=== PATIENT | male | born 1965 | race Caucasian/White ===

== ENCOUNTER 2021-08-08 05:50 | Observation (INO) ==
--- NOTE | 2021-06-12 11:39 | PAT Medication Instructions ---
Medication Instructions Date of Service June 12, 2021 Home Medications Medication Instructions Recorded cholecalciferol (vitamin D3) 50 50 mcg PO DAILY #30 tab 05/09/20 mcg (2,000 unit) tablet CPAP Machine 1 ea .ROUTE UD #1 ea 08/03/20 Oxygen Home See Rx Instructions .ROUTE 08/03/20 .COMPLEX #1 ea albuterol sulfate 2.5 mg INHALATION Q4H PRN #90 ml 03/09/21 fluticasone 250 mcg-salmeterol 50 1 inh INHALATION BID #60 ea 04/11/21 mcg/dose blistr powdr for inhalation (Wixela Inhub) fluticasone propionate 50 2 spray INTRANASAL DAILY #16 g 04/11/21 mcg/actuation nasal spray,suspension metformin 500 mg tablet,extended See Rx Instructions .ROUTE 04/11/21 release 24 hr .COMPLEX #180 tab albuterol sulfate 90 mcg/actuation 2 puff INHALATION Q6H PRN #25.5 g 05/14/21 aerosol inhaler sodium chloride 0.65 % nasal spray aerosol (Saline Nasal) 1 spray INTRANASAL BID PRN cholecalciferol (vitamin D3) 50 mcg (2,000 unit) tablet 50 mcg PO DAILY albuterol sulfate 2.5 mg INHALATION Q4H PRN fluticasone 250 mcg-salmeterol 50 mcg/dose blistr powdr for inhalation (Wixela Inhub) 1 inh INHALATION BID fluticasone propionate 50 mcg/actuation nasal spray,suspension 2 spray INTRANASAL DAILY metformin 500 mg tablet,extended release 24 hr See Rx Instructions .ROUTE .COMPLEX albuterol sulfate 90 mcg/actuation aerosol inhaler 2 puff INHALATION Q6H PRN amlodipine 5 mg tablet 5 mg PO QAM azithromycin 250 mg tablet See Rx Instructions PO .COMPLEX guaifenesin 600 mg tablet, extended release 12 hr 600 mg PO BID prednisone 20 mg tablet 20 mg PO DAILY umeclidinium 62.5 mcg/actuation blister powder for inhalation (Incruse Ellipta) 1 inh INHALATION QAM empagliflozin 25 mg tablet (Jardiance) 25 mg PO QAM fenofibrate 160 mg tablet 160 mg PO QAM levothyroxine 200 mcg tablet 200 mcg PO QAM losartan 100 mg-hydrochlorothiazide 25 mg tablet 1 tab PO QAM rosuvastatin 40 mg tablet (Crestor) 40 mg PO QAM tiotropium bromide 18 mcg capsule with inhalation device (Spiriva with HandiHaler) 1 cap INHALATION QAM Continue as directed azithromycin 250 mg tablet See Rx Instructions PO .COMPLEX STOP taking 48 hours before surgery fenofibrate 160 mg tablet 160 mg PO QAM DO NOT take the morning of surgery cholecalciferol (vitamin D3) 50 mcg (2,000 unit) tablet 50 mcg PO DAILY metformin 500 mg tablet,extended release 24 hr See Rx Instructions .ROUTE .COMPLEX guaifenesin 600 mg tablet, extended release 12 hr 600 mg PO BID empagliflozin 25 mg tablet (Jardiance) 25 mg PO QAM losartan 100 mg-hydrochlorothiazide 25 mg tablet 1 tab PO QAM Take morning of surgery With a small sip of water, OTHERWISE NOTHING TO EAT OR DRINK AFTER MIDNIGHT: sodium chloride 0.65 % nasal spray aerosol (Saline Nasal) 1 spray INTRANASAL BID PRN (if needed) albuterol sulfate 2.5 mg INHALATION Q4H PRN (if needed) fluticasone 250 mcg-salmeterol 50 mcg/dose blistr powdr for inhalation (Wixela Inhub) 1 inh INHALATION BID fluticasone propionate 50 mcg/actuation nasal spray,suspension 2 spray IN TRANASAL DAILY albuterol sulfate 90 mcg/actuation aerosol inhaler 2 puff INHALATION Q6H PRN (if needed) amlodipine 5 mg tablet 5 mg PO QAM prednisone 20 mg tablet 20 mg PO DAILY umeclidinium 62.5 mcg/actuation blister powder for inhalation (Incruse Ellipta) 1 inh INHALATION QAM levothyroxine 200 mcg tablet 200 mcg PO QAM rosuvastatin 40 mg tablet (Crestor) 40 mg PO QAM tiotropium bromide 18 mcg capsule with inhalation device (Spiriva with HandiHaler) 1 cap INHALATION QAM Use rescue inhaler if needed; please bring rescue inhaler with you to hospital day of surgery if possible. Take evening before surgery sodium chloride 0.65 % nasal spray aerosol (Saline Nasal) 1 spray INTRANASAL BID PRN (if needed) albuterol sulfate 2.5 mg INHALATION Q4H PRN (if needed) fluticasone 250 mcg-salmeterol 50 mcg/dose blistr powdr for inhalation (Wixela Inhub) 1 inh INHALATION BID metformin 500 mg tablet,extended release 24 hr See Rx Instructions .ROUTE .COMPLEX albuterol sulfate 90 mcg/actuation aerosol inhaler 2 puff INHALATION Q6H PRN (if needed) guaifenesin 600 mg tablet, extended release 12 hr 600 mg PO BID Other Notes If you have any questions please call us at [phone] or [phone] or [phone] or [phone]
--- NOTE | 2021-07-17 14:08 | Anesthesiology Consultation ---
Date of Service July 17, 2021 Assessment & Plan (1) Encounter for pre-operative examination: - check BSG am DOS. - Case reviewed with Dr. Bernstein who advised given respiratory status and pulm recommendations as below patient will need pulmonology re-evaluation prior to surgery that he is acceptable to undergo procedure and for any pulmonary brendan- operative recommendations. Awaiting pulmonology pre-op evaluation. - pulmonology office visit 06/26/21 [place]: "...telehealth follow-up visit for acute exacerbation of COPD...states that he is doing much better clinically...down to about 1/2 pack/day with regards to his tobacco abuse...completed the prednisone course that I gave him at our last visit and has been using azithromycin 3 times a week...using the Breo and Anoro...scheduled to undergo kidney surgery later this month...severe obstructive lung disease and ongoing tobacco exposure as well as some component of restrictive lung disease...status post an acute exacerbation...continue Breo and Incruse. Continue azithromycin 250 mg 3 times a week..." - PCP office visit 06/13/21 [place]: "...hospitalized June 07, 2021 to June 09, 2021...COPD exacerbation...continues to have some shortness of breath and dyspnea on exertion...currently on 2 L of nasal cannula...recommended to move this back by two weeks to allow recovery..." - COVID screening: Per assessment on 07/17/2021: Travel screen negative, no known COVID-19 positive contacts or current COVID-19 related symptoms in past 2 weeks. Patient vaccinated. Surgeon arranging preop COVID testing, scheduled 07/31/2021. Awaiting results. Chart Review Chart Review: Pending: Refer to Additional Notes / Consult section and Patient seen in Pre Admission Testing Teaching & Discussion Pre-Anesthesia Teaching/Discussion Notes: Instructed NPO after midnight before surgery, except medications with 15 cc of water. Medication instructions provid ed according to the PAT guidelines. History Surgery Operation Date: 08/02/21 07:30 Proposed Procedures p Robotic Laparoscopic Assisted Partial Nephrectomy Left - Flex Carrasco MD Height/Weight Height: 5 ft 7 in Weight: 115 kg Allergies Allergy/AdvReac Type Severity Reaction Status Date / Time lisinopril AdvReac Mild Cough Verified 06/13/21 10:42 Medications Home Medications Medication Instructions Recorded Confirmed Last Taken sodium chloride 0.65 % nasal spray 1 spray INTRANASAL BID PRN 05/01/20 06/13/21 Unknown aerosol (Saline Nasal) cholecalciferol (vitamin D3) 50 50 mcg PO DAILY #30 tab 05/09/20 06/13/21 Unknown mcg (2,000 unit) tablet CPAP Machine 1 ea .ROUTE UD #1 ea 08/03/20 06/13/21 Unknown Oxygen Home See Rx Instructions .ROUTE 08/03/20 06/13/21 Unknown .COMPLEX #1 ea albuterol sulfate 2.5 mg INHALATION Q4H PRN #90 ml 03/09/21 06/13/21 Unknown fluticasone propionate 50 2 spray INTRANASAL DAILY #16 g 04/11/21 06/13/21 Unknown mcg/actuation nasal spray,suspension metformin 500 mg tablet,extended See Rx Instructions .ROUTE 04/11/21 06/13/21 Unknown release 24 hr .COMPLEX #180 tab albuterol sulfate 90 mcg/actuation 2 puff INHALATION Q6H PRN #25.5 g 05/14/21 06/13/21 Unknown aerosol inhaler azithromycin 250 mg tablet 250 mg PO .COMPLEX #36 tab 06/12/21 06/13/21 Unknown empagliflozin 25 mg tablet 25 mg PO QAM 06/12/21 06/13/21 Unknown (Jardiance) fenofibrate 160 mg tablet 160 mg PO QAM 06/12/21 06/13/21 Unknown levothyroxine 200 mcg tablet 200 mcg PO QAM 06/12/21 06/13/21 Unknown losartan 100 1 tab PO QAM 06/12/21 06/13/21 Unknown mg-hydrochlorothiazide 25 mg tablet prednisone 20 mg tablet 40 mg PO DAILY #7 tab 06/12/21 06/13/21 Unknown rosuvastatin 40 mg tablet (Crestor) 40 mg PO QAM 06/12/21 06/13/21 Unknown guaifenesin 600 mg tablet, 600 mg PO BID PRN 06/13/21 06/13/21 Unknown extended release 12 hr fluticasone fur. 100 mcg-umeclid 1 inh INHALATION DAILY #60 ea 06/28/21 Unknown 62.5 mcg-vilant 25 mcg inhalat.powder (Trelegy Ellipta) amlodipine 10 mg tablet See Rx Instructions .ROUTE 07/03/21 Unknown .COMPLEX #90 tablet Past Medical History Medical History (Updated 07/17/21 @ 15:58 by Adelita Vigil PA-C) Anxiety in clinical settings, reports at times tx with benzo inpatient in past Bladder cancer DX 2006 Chronic obstructive pulmonary disease exacerbation admission for respiratory failure 06/07-06/09/21, reports onset of cough yesterday without change in shortness of breath or wheezing Diabetes mellitus, type 2 History of COVID-19 04/17/21>SOB/CONGESTION/FATIGUE, supplemental oxygen use at night Hyperlipidemia Hypertension controlled, stable per pt Hypothyroidism On home oxygen therapy 2L HS with CPAP, with activity several wks after COVID illness 04/17/21; pt states has since discontinued Renal carcinoma Sleep apnea CPAP Tobacco use disorder Pt requests nicotine patch during admission, aware to discuss with surgeon's office/hospitalist team Patient denies h/o stroke, seizures, heart attack, heart failure, blood clots or blood transfusions. Exercise / Class Metabolic Activity II 4-5 Yardwork/Stairs/Walk up hill (SOB with 1 FOS if carrying something heavy, denies CP) Past Family History Family History Mother History of blood clots from blood clot that went to the brain Asthma Father Esophageal cancer Anxiety Grandfather (Paternal) No problems noted. Grandmother (Paternal) Hypertension Stroke Uncle Lung cancer paternal Other No family history of adverse response to anesthesia Denies family history of Ovarian cancer Prostate cancer Heart disease Myocardial infarction Breast cancer Colorectal cancer Past Surgical History Surgical History Fusion of spine LUMBAR FUSION History of anesthesia reaction COMBATIVE WITH BACK SURGERY History of bladder surgery TURBT X 2 History of cystoscopy History of hernia repair X 3 History of tooth extraction Past Anesthesia History No Family Hx of Anesthesia Complications and Other (combative post-op) History of PONV No Hx of PONV and No Hx of Motion Sickness Social History Smoking Status: Current every day smoker tobacco type: cigarettes Smoking cigarettes per day: 10-15 PER DAY "TRYING TO CUT DOWN" *ADVISED Do You Dip or Chew Tobacco: No Hx Alcohol Use: No Hx Substance Use: No substance use type: does not use Review of Systems Rare reflux. Onset of cough yesterday, denies increased shortness of breath or dyspnea on exertion, pharyngitis, sinus/ear pain or fatigue. Pt was advised to remain in close communication with pulmonology office. Patient denies chest pain, fever, chills, or palpitations. Physical Exam Vital Signs Vitals BP 115/76 P 91 TEMP 98.6 SP02 96% on RA RESP 17 Physical Full cervical extension range of motion without pain TMD 3.5 finger breaths Mallampati Score 3 Dentition: intact, several missing back upper and lower, cap upper front right; denies chipped or loose teeth, implants or bridges Lungs: normal respiratory effort. Good air movement, diffuse expiratory wheezes, no rales or rhonchi Cardiac: regular rate and rhythm, no murmurs noted Carotid arteries: negative bruit bilat Lab Results Anesthesia Preop Results Results Anesthesia Widget: WBC 4.94 K/uL (4.8-10.8) 07/17/21 Hgb 15.6 g/dL (14.0-18.0) 07/17/21 Hct 47.8 % (42-52) 07/17/21 Plt 270 K/uL (130-400) 07/17/21 Na 138 mmol/L (136-145) 07/17/21 K 3.8 mmol/L (3.5-5.1) 07/17/21 Cl 104 mmol/L (98-107) 07/17/21 CO2 27 mmol/L (21-32) 07/17/21 BUN 24 mg/dl (6-23) H 07/17/21 Creat 1.01 mg/dl (0.6-1.4) 07/17/21 Glucose Level 120 mg/dl (70-99(Fasting)) H 07/17/21 Urine Color Yellow 07/17/21 Urine Appearance Clear (Clear) 07/17/21 Urine pH 5.5 (4.5-7.5) 07/17/21 Urine Specific [place] 1.024 (1.000-1.030) 07/17/21 Urine Protein 1+ (Negative) H 07/17/21 Urine Glucose (UA) 3+ (Negative) H 07/17/21 Urine Ketones Negative (Negative) 07/17/21 Urine Blood Negative (Negative) 07/17/21 Urine Nitrite Negative (Negative) 07/17/21 Urine Bilirubin Negative (Negative) 07/17/21 Urine Urobilinogen Negative (Negative) 07/17/21 Urine Leukocyte Esterase Negative (Negative) 07/17/21 Urine WBC (Auto) 0 /hpf (0-5) 07/17/21 Urine RBC (Auto) 0-4 /hpf (0-4) 07/17/21 Urine Hyaline Casts (Auto) 0 /lpf (0-5) 07/17/21 Urine Epithelial Cells (Auto) 0-5 /lpf (0-5) 07/17/21 Urine Bacteria (Auto) Negative (Negative) 07/17/21 Blood Type A Positive 07/17/21 Antibody Screen NEGATIVE 07/17/21 Testing Laboratory Results 06/08/21 A1c: 7.4% Electrocardiogram Date: 07/17/21 NSR, rate 85 bpm Chest X-Ray Date: 07/17/21 Lung volumes are normal. There is no pneumothorax or pleural effusion. Cardiac size is normal. Mediastinal contours are normal. Nipple shadows project over the lungs. There is mild interstitial thickening, similar to prior exam. IMPRESSION: No significant change in mild nonspecific interstitial thickening since chest radiograph of June 07, 2021. Other Testing CT abdomen/pelvis 05/10/21 Approximately 3 cm mass arising off of the upper pole of the left kidney concerning for renal cell carcinoma 2.5 cm fatty left adrenal mass compatible with a myelolipoma, slightly larger than on previous exam Chest CT 10/25/20 Interval resolution of previously seen right lower lobe ground-glass density Redemonstration of left renal upper pole exophytic lesion
[2021-08-08] MEDS ORDERED: LR 15ML/HR IV SCH (06:00)
[2021-08-08] MEDS ORDERED: ceFAZolin 2000MG 2,000 MG/15 ML SYR IV SCH (06:00)
[2021-08-08] MEDS ORDERED: LIDOCAINE 2% 2 ML VIAL/AMP(20MG/ML) INFIL ONE (06:44)
[2021-08-08] MEDS ORDERED: DEXAMETHASONE SOD INJ 4 MG/ML VIAL ONE (06:44)
[2021-08-08] MEDS ORDERED: fentaNYL citrate 100 MCG/2 ML VIAL ONE ×2 (06:44→11:56)
[2021-08-08] MEDS ORDERED: PROPOFOL IV EMULSION 10 MG/ML 20 ML VIAL IV ONE ×2 (06:44→06:46)
[2021-08-08] MEDS ORDERED: ONDANSETRON INJ 2 MG/ML 2 ML VIAL ONE (06:44)
[2021-08-08] MEDS ORDERED: MIDAZOLAM HCL 1 MG/ML 2ML VIAL ONE (06:44)
[2021-08-08] MEDS ORDERED: ROCURONIUM BROMIDE 10 MG/ML 5 ML VIAL IV ONE ×12 (06:44→11:42)
[2021-08-08] MEDS ORDERED: fentaNYL citrate 100 MCG/2 ML VIAL IV PRN ×2 (06:55→15:20)
[2021-08-08] MEDS ORDERED: diphenhydrAMINE 50 MG/ML VIAL IV PRN (06:55)
[2021-08-08] MEDS ORDERED: HYDROmorphone INJ 1 MG/ML SYRINGE IV PRN (06:55)
[2021-08-08] MEDS ORDERED: ePHEDrine sulfate 50 MG/ML AMP IV PRN ×2 (06:55→15:20)
[2021-08-08] MEDS ORDERED: ATROPINE SULFATE 0.1 MG/ML 10ML SYR IV PRN ×2 (06:55→15:20)
[2021-08-08] MEDS ORDERED: ONDANSETRON INJ 2 MG/ML 2 ML VIAL IV PRN ×3 (06:55→18:13)
[2021-08-08] MEDS ORDERED: DEXAMETHASONE SOD INJ 4 MG/ML VIAL IV PRN (06:55)
--- NOTE | 2021-08-08 06:59 | History & Physical Report ---
Date of Service August 08, 2021 Assessment & Plan (1) Left renal mass: Plan: We reviewed his renal mass and that it likely represents malignancy. We reviewed the plan for robot-assisted partial nephrectomy today. We reviewed the risks and benefits as well as what he should expect postoperatively. He expressed understanding and willingness to proceed with surgery. Plan: Proceed with robot-assisted laparoscopic partial left nephrectomy. History of Present Illness Primary Care Provider: Arik Raya MD This is a 56-year-old male who was previously seen in the urology office on 05/28/2021 for a newly discovered left-sided renal mass. Images were obtained for review which confirmed a 3 cm anterior upper pole heterogeneously enhancing left renal mass, concerning for malignancy. At that visit we had discussed surgical removal with robot-assisted laparoscopic left partial nephrectomy. We discussed the risks and benefits of the procedures and he elected to proceed with surgery. He presents to the OR today for this procedure. Of note, since his office visit, he was hospitalized with a COPD exacerbation and COVID-19. He has followed by pulmonology and is thought to be optimized for surgery from a pulmonary perspective. Allergies Allergy/AdvReac Type Severity Reaction Status Date / Time lisinopril AdvReac Mild Cough Verified 08/08/21 06:12 Home Medications Medication Instructions Recorded Confirmed Type sodium chloride 0.65 % nasal spray 1 spray INTRANASAL BID PRN 05/01/20 08/08/21 History aerosol (Saline Nasal) cholecalciferol (vitamin D3) 50 50 mcg PO DAILY #30 tab 05/09/20 08/08/21 Rx mcg (2,000 unit) tablet CPAP Machine 1 ea .ROUTE UD #1 ea 08/03/20 08/08/21 Rx Oxygen Home See Rx Instructions .ROUTE 08/03/20 08/08/21 Rx .COMPLEX #1 ea albuterol sulfate 2.5 mg INHALATION Q4H PRN #90 ml 03/09/21 08/08/21 Rx fluticasone propionate 50 2 spray INTRANASAL DAILY #16 g 04/11/21 08/08/21 Rx mcg/actuation nasal spray,suspension metformin 500 mg tablet,extended See Rx Instructions .ROUTE 04/11/21 08/08/21 Rx release 24 hr .COMPLEX #180 tab albuterol sulfate 90 mcg/actuation 2 puff INHALATION Q6H PRN #25.5 g 05/14/21 08/08/21 Rx aerosol inhaler empagliflozin 25 mg tablet 25 mg PO QAM 06/12/21 08/08/21 History (Jardiance) fenofibrate 160 mg tablet 160 mg PO QAM 06/12/21 08/08/21 History levothyroxine 200 mcg tablet 200 mcg PO QAM 06/12/21 08/08/21 History losartan 100 1 tab PO QAM 06/12/21 08/08/21 History mg-hydrochlorothiazide 25 mg tablet rosuvastatin 40 mg tablet (Crestor) 40 mg PO QAM 06/12/21 08/08/21 History amlodipine 10 mg tablet See Rx Instructions .ROUTE 07/03/21 08/08/21 Rx .COMPLEX #90 tablet theophylline 400 mg 400 mg PO DAILY tab 07/25/21 08/08/21 History tablet,extended release 24 hr fluticasone furoate 100 1 inh INHALATION DAILY #60 ea 08/01/21 08/08/21 Rx mcg-vilanterol 25 mcg/dose inhalation powder (Breo Ellipta) umeclidinium 62.5 mcg/actuation 1 inh INHALATION DAILY #30 ea 08/01/21 08/08/21 Rx blister powder for inhalation (Incruse Ellipta) Past Med/Surg History Medical History Anxiety Bladder cancer Chronic obstructive pulmonary disease Diabetes mellitus, type 2 History of COVID-19 Hyperlipidemia Hypertension Hypothyroidism On home oxygen therapy Renal carcinoma Sleep apnea Tobacco use disorder Surgical History Fusion of spine History of anesthesia reaction History of bladder surgery History of cystoscopy History of hernia repair History of tooth extraction Family History Mother History of blood clots Asthma Father Esophageal cancer Anxiety Grandfather (Paternal) No problems noted. Grandmother (Paternal) Hypertension Stroke Uncle Lung cancer Other No family history of adverse response to anesthesia Denies family history of Ovarian cancer Prostate cancer Heart disease Myocardial infarction Breast cancer Colorectal cancer Social History Smoking Status: Current every day smoker Tobacco Type: Cigarettes Age Started Using Tobacco: 14; packs per day: 1; Cigarettes Per Day: 10-15 PER DAY "TRYING TO CUT DOWN" *ADVISED; Second Hand Exposure: Yes; Do You Dip or Chew Tobacco: No; Hx Alcohol Use: No Hx Substance Use: No Preferred Language: Albanian Communication Ability: Effective Hearing Ability: Normal Legal Examiner Required: No Beliefs That Will Affect Care: None marital status: Current Living Situation: Spouse current occupational status: employed current occupation: industrial automation engineer How many Children do You have: 1 Feels Safe at Home: Yes Safety Concerns: Feels Safe At This Time Childhood Exposure to Second-Hand Smoke: Yes Seatbelt Use: always Sunscreen Use: Yes Assistive Devices: CPAP, Glasses, Nebulizer and Oxygen - Continuous Review of Systems 14 point review of systems negative except for otherwise indicated. Physical Exam Constitutional: well developed and well nourished; no acute distress Eyes: + anicteric sclerae; pupils not irregular Respiratory: normal respiratory effort; no respiratory distress, does not use accessory muscles and no cough Cardiovascular: well perfused Gastrointestinal (Abdomen): Inspection/Auscultation: abdomen normal to inspection; abdomen not distended Musculoskeletal: Extremities: extremities normal to inspection Skin: normal turgor; no rashes and no lesions Neurologic: moves all extremities and awake Psychiatric: Orientation: alert and oriented x 3 Results & Data ([facility]) Vital Signs (Past 12 Hours) Vital Signs Temp Pulse Resp BP Pulse Ox 08/08/21 06:17 36.9 C 94 H 20 138/85 92
[2021-08-08] MEDS ORDERED: GELATIN SPONGE SZ 100 ONE (07:29)
[2021-08-08] MEDS ORDERED: BUPIVACAINE 0.5 % 5 MG/1 ML MPF 30ML VIAL ONE (07:29)
[2021-08-08] MEDS ORDERED: SURGICEL ABSORB HEMOSTAT 2IN X 14IN TOP ONE (09:36)
[2021-08-08] MEDS ORDERED: TISSEEL FIBRIN SEALANT 10ML TOP ONE (09:37)
[2021-08-08] MEDS ORDERED: FLOSEAL HEMOSTATIC MATRIX 10ML TOP ONE (09:59)
[2021-08-08] MEDS ORDERED: INSULIN ASPART PER UNIT ONE ×2 (11:01→12:51)
[2021-08-08] MEDS ORDERED: ceFAZolin 330 MG/ML 1 GM VIAL ONE (11:27)
[2021-08-08] MEDS ORDERED: ceFAZolin 2000MG 2,000 MG/15 ML SYR IV ONE (11:30)
--- NOTE | 2021-08-08 14:01 | Post Operative Brief Note ---
PG Immediate Post Op with CF Date of Surgery August 08, 2021 Pre & Post Diagnosis Operation Date: 08/08/21 07:30 Pre-Op Diagnosis: Renal Cell Carcinoma of Left Kidney Post-Op Diagnosis: Renal Cell Carcinoma of Left Kidney I identified the patient and participated in the time-out.: Yes Procedure Operation Date: 08/08/21 07:30 Actual Procedures p Robotic Assisted Laparoscopic Left Radical Nephrectomy (Left) - Flex Carrasco MD Surgeon Flex Carrasco MD Power Plant Operator José Antonio Palacios MD Estimated Blood Loss 20 Findings Consistent with Post-Op Diagnosis Specimens Specimen Description: A. Left kidney Drains Manriquez Catheter Anesthesia Type General Complications none Disposition Disposition: Recovery Room
[2021-08-08] MEDS: fentaNYL citrate 100 MCG/2 ML VIAL IV PRN ×2 (14:32→14:50)
[2021-08-08] MEDS ORDERED: PHENYLEPHRINE 100MCG/ML 5ML SYR IV PRN (15:20)
[2021-08-08] MEDS ORDERED: LABETALOL HCL IV 5 MG/ML 20ML IV PRN (15:20)
--- NOTE | 2021-08-08 15:34 | Operative Report ---
PG Post Operative Report Pre & Post Diagnosis Operation Date: 08/08/21 07:30 Pre-Op Diagnosis: Renal Cell Carcinoma of Left Kidney Post-Op Diagnosis: Renal Cell Carcinoma of Left Kidney I identified the patient and participated in the time-out.: Yes Procedure Operation Date: 08/08/21 07:30 Actual Procedures p Robotic Assisted Laparoscopic Left Radical Nephrectomy (Left) - Flex Carrasco MD Surgeon Flex Carrasco MD Claim Approver José Antonio Palacios MD Estimated Blood Loss 20 Findings Consistent with Post-Op Diagnosis Specimens Left kidney Drains 16 Micronesian Manriquez catheter per urethra Anesthesia Type General Complications none Disposition Disposition: Recovery Room Indications This is a 56-year-old male who was recently seen in the urology office with a left renal mass. At that visit we discussed the likelihood that the mass represented a malignancy and it should be removed. We discussed robot-assisted partial left nephrectomy with the risk of converting to a radical nephrectomy. He expressed understanding and presented to the OR today for surgery. Description of Procedure The patient was identified and informed consent was confirmed. He was marked on the left side and then brought to the OR where general anesthesia was initiated. He was placed on the operating room table in a relaxed left lateral position with the left side elevated and the table slightly flexed. All pressure points were appropriately padded. His abdomen and flank were prepped and draped in the usual sterile fashion and a timeout was performed. Upon inspection he was noted to have an umbilical hernia and a scar from prior inguinal surgery. A line was marked approximately 8 cm to the left of the umbilicus, running cephalocaudally. Anticipated port sites were marked 2 cm below the costal margin, and then approximately 7.5 cm spaced apart along this line. An incision was made at the second marcelo, and the subcutaneous tissue was bluntly spread to reach the fascia. A Veress needle was then used to gain access to the peritoneum, confirming position with a negative aspiration, successful drop test and low opening pressure. The abdomen was then insufflated to 15 mmHg. An 8 mm robotic port was then advanced into the peritoneum and the camera was inserted. Survey demonstrated some adhesions of the colon to the lateral wall, especially down toward the pelvis. The umbilical hernia appeared to be fat- containing and was clear of the field. The remaining 8 mm robotic ports were placed under direct vision. A 12 mm physical therapist assistant port was placed just cephalad to the umbilicus. The robot was then docked. I began by sharply lysing the adhesions of the colon to the lateral wall, then reflecting the colon along the white line of Toldt. In this fashion I was able to expose the contour of the kidney. There were some sticky areas at approximately the level of the lower pole. Off the lower pole I was able to identify the psoas muscle, then using this landmark, the gonadal vessels and the ureter could be identified. Lifting the kidney anteriorly, I then dissected along the gonadal vein toward the hilum. This dissection was particularly challenging due to the significant amount of abdominal fat, which made retraction and exposure difficult. Up toward the hilum, it was clear that the gonadal vessels were tethering the tissue down and limiting the ability to dissect. The gonadal vein and artery were and then clipped with Hem-o-loks, then cauterized and divided. Gaining further exposure of this area was challenging, again due to the abdominal fat. A 5 mm port was placed lateral to the umbilicus. I had the physical therapist assistant use a laparoscopic fan/paddle device to retract bowel via the 12 mm port, and use the laparoscopic suction through the 5 mm port. I was next able to identify the hilum and dissect out the vessels. He had 2 main renal veins which appeared to essentially wind around the main renal artery. There appeared to be a smaller accessory artery and vein associated with this as well. I was able to carry dissection slightly further up toward the head, identifying large splenic vessels off the superior aspect of the kidney. We then introduced the intraoperative ultrasound. The upper pole of the kidney was surveyed and the mass was identified. It appeared to be in a more posterior position than it had seemed on the CT scan. Gaining access to this portion of the kidney was very challenging due to the bowels and fat. Based on the location and complex hilar anatomy, I decided the safer approach would be to convert to a radical nephrectomy rather than attempt a partial at this point. A window was made on either side of the main renal artery, which ended up including the accessory branches and one of the renal veins. The laparoscopic stapler with a vascular staple load was inserted and aligned with this window. 1 staple load was used to take the artery and other vessels listed above. The single vein was left in place while I checked to make sure there were no other arteries more cephalad. Satisfied that there were not, a second staple load was used to divide the remaining vein. There was good hemostasis. The remaining attachments of the kidney were then freed up. The cone of fat was divided largely with cautery. Clips were applied to both the ureter and the gonadal vessels, then both of these were divided. The superior aspect of the kidney was then freed up from the surrounding retroperitoneum. Due to retraction, a rent was made in the renal parenchyma, however this appeared to be well removed from the renal mass. The mass appeared to be intact. Once the kidney was freed up, the fourth arm of the robot was [id number] and that port was upsized to a 15 mm trocar. The 15 mm Endo Catch bag was then inserted and used to bag the specimen. The renal fossa was inspected to confirm good hemostasis. Surgicel and Floseal were both applied to the wound bed and the stapled hilar vessels. Hemostasis appeared to be excellent. The robot was then docked. The lowermost port site incision was extended with the blade. Dissection was then carried down with electrocautery to expose the external oblique fascia. 2 stay sutures were placed for future identification. The fascia was then divided with cautery, and further dissection was carried down. Once we were close to the peritoneum, the port was removed and then I dissected down onto my finger to protect any underlying bowel. The kidney was extracted and sent for pathologic analysis. The peritoneum was closed using a running 3-0 Vicryl suture. The external oblique fascia was then closed using interrupted [id number] 0 Vicryl sutures. The fascia was anesthetized using 10 mL of 0.5% Marcaine without epinephrine. The other incisions and skin edges were anesthetized using 20 mL of 0.5% Marcaine. The subcutaneous tissue of the extraction site was closed using a running 3-0 Vicryl suture, and the skin was closed with a running subcuticular 4-0 Monocryl. Other port sites were closed using interrupted or subcuticular 4-0 Monocryl sutures. A deep stitch was placed to the fascia of the physical therapist assistant port with a 0 Vicryl. The abdomen was then cleaned and dried and Dermabond was applied to all the incisions. At this point the patient was awakened from anesthesia and was brought to the [facility] in stable condition. José Antonio Palacios MD assisted for the procedure, acting as the bedside physical therapist assistant, providing retraction, applying clips, passing sutures and stapling as necessary. I attest to the content of the Intraoperative Record and any orders documented therein. Any exceptions are noted below.
[2021-08-08] MEDS: HYDROmorphone INJ 1 MG/ML SYRINGE IV PRN ×2 (16:07→16:42)
--- NOTE | 2021-08-08 16:09 | Anesthesiology Progress Note ---
Date of Service August 08, 2021 Anesthesia Post Procedure Vital Signs Vital Signs: Temp Pulse Pulse Resp BP Pulse Ox 08/08/21 15:50 95 H 18 110/71 92 08/08/21 15:40 101 H 16 116/75 92 08/08/21 15:30 102 H 20 107/85 92 08/08/21 15:20 99 H 20 108/70 92 08/08/21 15:10 94 H 20 108/81 92 08/08/21 15:00 104 H 14 105/72 92 08/08/21 14:50 107 H 21 105/74 92 08/08/21 14:40 112 H 17 129/86 92 08/08/21 14:30 113 H 17 126/77 93 08/08/21 14:20 113 H 16 138/86 94 08/08/21 14:14 36.6 C 105 H 12 135/77 93 08/08/21 06:17 36.9 C 94 H 20 138/85 92 Pain Intensity Right Arm: Pain Intensity: 4 Transfer of Care Handoff Completed per policy Notes Mental Status: alert / awake / arousable Patient Amnestic to Procedure: Yes Nausea / Vomiting: adequately controlled Pain: adequately controlled Airway Patency, RR, SpO2: stable & adequate BP & HR: stable & adequate Hydration State: stable & adequate Anesthetic Complications: no major complications apparent and Pt Satisfied with anesthetic care Notes: The patient was signed out to me in PACU by Dr. Addison. The patient has had some soreness over his right elbow in the PACU. Dr. Ibarra evaluated the patient with me. The patient is able to raise his right arm, squeeze with his fingers, and pinch his thumb and pinky finger on his right hand together. The patient has some soreness over his lateral right arm. Pushing on the area does not worsen the soreness. 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 Dr. Ibarra counseled the patient to take anti-inflammatory over the counter pain medicines as directed and to keep his arm relaxed without pressure on it.
[2021-08-08] MEDS ORDERED: ALBUTEROL 0.083% NEBU SOLN 3 ML VIAL INH PRN (18:13)
[2021-08-08] MEDS ORDERED: oxyCODONE HCL IR 5 MG TAB (IMMEDIATE RELEASE) PO PRN (18:13)
[2021-08-08] MEDS ORDERED: MoRPHine SULFATE 2 MG/ML CARP IV PRN (18:13)
[2021-08-08] MEDS ORDERED: NON-FORMULARY MEDICATION (Cpap Machine misc) SCH (18:13)
[2021-08-08] MEDS ORDERED: NON-FORMULARY MEDICATION (Oxygen Home Liters per Minute) SCH (18:13)
[2021-08-08] MEDS ORDERED: ACETAMINOPHEN 325 MG TAB PO PRN (18:13)
[2021-08-08] MEDS ORDERED: ALBUTEROL HFA 8 GM INHALER INH PRN (18:13)
[2021-08-08] MEDS ORDERED: PHARMACY GLYCEMIC MGMT CONSULT PRN (18:13)
[2021-08-08] MEDS: MoRPHine SULFATE 4 MG/ML 1 ML CARP\\VIAL IV PRN (19:17)
[2021-08-08] MEDS: LACTATED RINGER'S 1,000 ML IV SCH (19:21)
[2021-08-08] MEDS ORDERED: INSULIN GLARGINE SOLOSTAR 100 UNITS/ML 3 ML PEN SC STA ×2 (19:21→20:23)
[2021-08-08] MEDS: DOCUSATE SODIUM 100 MG CAP PO SCH (20:06)
[2021-08-08] MEDS: ceFAZolin 2000MG 2,000 MG/15 ML SYR IV SCH (20:07)
[2021-08-08] MEDS: oxyCODONE HCL IR 5 MG TAB (IMMEDIATE RELEASE) PO PRN (20:07)
[2021-08-08] MEDS: INSULIN ASPART PER UNIT SC SCH (20:23)
[2021-08-08] MEDS: NICOTINE 14 MG/24 HR PATCH TD SCH (20:25)
[2021-08-08] MEDS: HEPARIN SOD 5,000 UNIT/0.5 ML VIAL SQ SCH (20:33)
[2021-08-09] MEDS: INSULIN ASPART PER UNIT SC SCH ×6 (00:15→21:05)
[2021-08-09] MEDS: oxyCODONE HCL IR 5 MG TAB (IMMEDIATE RELEASE) PO PRN ×5 (02:16→21:26)
[2021-08-09] MEDS: LACTATED RINGER'S 1,000 ML IV SCH ×3 (02:19→21:33)
[2021-08-09] MEDS: ceFAZolin 2000MG 2,000 MG/15 ML SYR IV SCH ×2 (04:13→04:22)
[2021-08-09] MEDS: MoRPHine SULFATE 4 MG/ML 1 ML CARP\\VIAL IV PRN (04:32)
[2021-08-09] MEDS: LEVOTHYROXINE SODIUM 200 MCG TABLET PO SCH (06:16)
[2021-08-09 08:24] LABS: Eosinophils # (auto) 0.05 K/uL (0-0.5); Eosinophils % (auto) 0.5 %; Hematocrit (blood only) 44.2 % (42-52); Hemoglobin 14.4 g/dL (14.0-18.0); Immature Granulocytes # (auto) 0.03 K/uL (0.00-0.02); Immature Granulocytes % (auto) 0.3 %; Lymphocytes # (auto) 1.17 K/uL (1.2-3.4); Lymphocytes % (auto) 10.8 %; Mean Corpuscular Hemoglobin 29.2 pg (25-34); Mean Corpuscular Hgb Conc 32.6 g/dL (32-36); Mean Corpuscular Volume 89.7 fL (80-100); Mean Platelet Volume 10.4 fL (7.4-10.4); Monocytes # (auto) 1.36 K/uL (0.11-0.59); Monocytes % (auto) 12.5 %; Neutrophils # (auto) 8.26 K/uL (1.4-6.5); Neutrophils % (auto) 75.9 %; Platelet Count 238 K/uL (130-400); RDW Coefficient of Variation 14.6 % (11.5-14.5); RDW Standard Deviation 47.7 fL (36.4-46.3); Red Blood Count 4.93 M/uL (4.7-6.1); White Blood Count 10.87 K/uL (4.8-10.8)
[2021-08-09] MEDS: UMECLIDINIUM BROMIDE 62.5MCG/BLISTER 7 PUFFS/INHALER INH SCH (08:30)
[2021-08-09] MEDS: FLUTICASONE/VILANTEROL 100/25MCG 14 PUFFS/INHALER INH SCH (08:31)
[2021-08-09] MEDS: FLUTICASONE PROPIONATE NA SPR 16 GM BTL SCH (08:31)
[2021-08-09] MEDS: FENOFIBRATE NANOCRYSTALLIZED 145 MG TABLET PO SCH (08:32)
[2021-08-09] MEDS: NICOTINE 14 MG/24 HR PATCH TD SCH (08:32)
[2021-08-09] MEDS: amLODIPine BESYLATE 5 MG TAB PO SCH (08:32)
[2021-08-09] MEDS: ROSUVASTATIN CALCIUM 20 MG TAB PO SCH (08:32)
[2021-08-09] MEDS: CHOLECALCIFEROL 1,000 UNITS 25 MCG TAB PO SCH (08:33)
[2021-08-09] MEDS: THEOPHYLLINE 400 MG EXTENDED REL TAB PO SCH (08:33)
[2021-08-09] MEDS: DOCUSATE SODIUM 100 MG CAP PO SCH ×2 (08:33→19:45)
[2021-08-09 08:36] LABS: Calcium 8.6 mg/dl (8.5-10.1); Est GFR (African American) 40.3 ml/min; Est GFR (Non-African American) 34.8 ml/min; Potassium 3.9 mmol/L (3.5-5.1)
--- NOTE | 2021-08-09 08:38 | Urology Progress Note ---
Date of Service August 09, 2021 Assessment & Plan (1) Renal mass of unknown nature: Plan: Doing well, s/p left robot-assisted radical nephrectomy on 08/08/2021. We reviewed discharge criteria, that he needs to be eating, ambulating and his pain under control. We will see how this morning goes and potentially he will be ready for discharge this afternoon. We will also monitor his oxygen status as he has recently had COPD exacerbation and hospitalization from [place] [id number]. This may delay his discharge. He should be ready for Manriquez catheter removal today. Admission and Anticipated Discharge Date Admission Date: August 08, 2021 Subjective Feeling okay today Still having some soreness of the abdomen, needed dose of morphine early this morning. Has not had any food yet, but no nausea or vomiting. Has not ambulated yet, but ready to try this morning. Review of Systems Review of Systems: No fevers and chills Gastrointestinal: No nausea or vomiting Physical Exam Physical Exam: Well-appearing, NAD Respiratory: Breathing comfortably, no accessory muscles, supplemental oxygen by nasal cannula Gastrointestinal (Abdomen): Abdomen soft, appropriate periincisional tenderness. Incisions are well approximated with overlying Dermabond. Mild erythema around the incisions, no drainage. Genitourinary: Manriquez catheter in place draining clear yellow urine Results & Data ([facility]) Vital Signs (Past 12 Hours) Vital Signs Temp Pulse Resp BP BP Pulse Ox 08/09/21 07:21 36.5 C 85 16 136/89 93 08/09/21 06:01 36.4 C L 88 16 137/81 94 08/09/21 01:58 36.8 C 99 H 18 132/79 93 08/08/21 22:03 36.6 C 94 H 18 130/88 94 08/08/21 20:56 36.7 C 91 H 18 136/81 96 PG Care Time/CCT Total # of Minutes Spent Total Time Spent with Patient: Total time spent is greater than 50% in coordination of care (as documented) at patient's floor/unit and/or counseling patient: Coding Level of Care Code None Diagnoses Renal mass of unknown nature N28.89
[2021-08-09] MEDS: HEPARIN SOD 5,000 UNIT/0.5 ML VIAL SQ SCH ×2 (09:00→19:45)
[2021-08-09] MEDS ORDERED: LOSARTAN/HCTZ 50/12.5MG TAB PO SCH (09:00)
[2021-08-09 09:39] LABS: Estimated Average Glucose 214 mg/dl; Hemoglobin A1C 9.1 % (4.5-5.6)
--- NOTE | 2021-08-09 09:52 | Hospitalist Consultation ---
Date of Consultation August 09, 2021 Assessment & Plan (1) Renal cell carcinoma of left kidney: Patient is status post left nephrectomy Postop medical management as per urology Manriquez catheter removed on 07/22 pain control, bowel regimen Encouraged ambulation Incentive spirometry Await pathology Follow CBC, BMP in the morning (2) Hypoxemia: At home uses 2 L bled through CPAP machine at night and 2 L during the day as needed Here is on 4 L-asked nurse to wean down as tolerated to keep pulse ox greater than 88% given history of COPD May need repeat two-step walk test prior to discharge to determine current level of oxygen requirement (3) FANTASMA (acute kidney injury): Creatinine up to 2.0 from baseline 1.0 Likely secondary to nephrectomy He did receive his HCTZ/losartan today but is on LR at 100 mL/h Continue IV fluids Hold losartan/HCTZ for tomorrow Follow BMP in the morning (4) COPD (chronic obstructive pulmonary disease): Follows with pulmonology Continue home maintenance inhalers of Breo and Anoro Continue home theophylline Encouraged smoking cessation (5) Obstructive sleep apnea: Continue CPAP with 2 L bled in at night (6) Benign essential hypertension: Blood pressures are controlled Will hold home HCTZ/losartan due to acute kidney injury Continue amlodipine (7) Diabetes mellitus: Hemoglobin A1c is 9.1% which is uncontrolled Holding home Jardiance and metformin Pharmacy has been consulted Continue basal bolus insulin Recommend continuing to hold Jardiance and metformin if renal function not improved prior to discharge (8) HLD (hyperlipidemia): Continue fenofibrate (9) Hypothyroidism: TSH here is normal Continue home levothyroxine 10 mcg daily (10) Tobacco use disorder: Encouraged smoking cessation-he is trying to quit Continue nicotine patch DVT prophylaxis-Heparin SQ, SCDs Disposition-continued stay, hospital service will follow History of Present Illness Reason for Consultation: COPD, medical management, recent COVID Requesting Physician: Dr. Carrasco Attending Physician: Flex Carrasco MD History of Present Illness This patient is a 56-year-old male with history of COPD, HTN, DM 2, LOURDES on CPAP and 2 L nasal cannula, DM 2, hypothyroidism, and history of COVID-19 and 06/07- 06/09, who was admitted to the hospital after having a left nephrectomy for renal cell carcinoma. The hospital service was consulted for medical management. The patient is reporting some pain in the abdomen, is passing flatus, is out of bed to chair but not ambulating much. His appetite is poor so far. No nausea or vomiting, no bowel movement yet today. He denies any chest pain or shortness of breath. He did have difficulty sleeping last night and requests something for sleep and anxiety. He was on 4 L nasal cannula when I saw him and reports typically at home he only uses oxygen as needed during the day and 2 L bled in through his CPAP at night. He is making urine. Allergies Allergy/AdvReac Type Severity Reaction Status Date / Time lisinopril AdvReac Mild Cough Verified 08/08/21 06:12 Home Medications Medication Instructions Recorded Confirmed Type sodium chloride 0.65 % nasal spray 1 spray INTRANASAL BID PRN 05/01/20 08/08/21 History aerosol (Saline Nasal) cholecalciferol (vitamin D3) 50 50 mcg PO DAILY #30 tab 05/09/20 08/08/21 Rx mcg (2,000 unit) tablet CPAP Machine 1 ea .ROUTE UD #1 ea 08/03/20 08/08/21 Rx Oxygen Home See Rx Instructions .ROUTE 08/03/20 08/08/21 Rx .COMPLEX #1 ea albuterol sulfate 2.5 mg INHALATION Q4H PRN #90 ml 03/09/21 08/08/21 Rx fluticasone propionate 50 2 spray INTRANASAL DAILY #16 g 04/11/21 08/08/21 Rx mcg/actuation nasal spray,suspension metformin 500 mg tablet,extended See Rx Instructions .ROUTE 04/11/21 08/08/21 Rx release 24 hr .COMPLEX #180 tab albuterol sulfate 90 mcg/actuation 2 puff INHALATION Q6H PRN #25.5 g 05/14/21 08/08/21 Rx aerosol inhaler empagliflozin 25 mg tablet 25 mg PO QAM 06/12/21 08/08/21 History (Jardiance) fenofibrate 160 mg tablet 160 mg PO QAM 06/12/21 08/08/21 History levothyroxine 200 mcg tablet 200 mcg PO QAM 06/12/21 08/08/21 History losartan 100 1 tab PO QAM 06/12/21 08/08/21 History mg-hydrochlorothiazide 25 mg tablet rosuvastatin 40 mg tablet (Crestor) 40 mg PO QAM 06/12/21 08/08/21 History amlodipine 10 mg tablet See Rx Instructions .ROUTE 07/03/21 08/08/21 Rx .COMPLEX #90 tablet theophylline 400 mg 400 mg PO DAILY tab 07/25/21 08/08/21 History tablet,extended release 24 hr fluticasone furoate 100 1 inh INHALATION DAILY #60 ea 08/01/21 08/08/21 Rx mcg-vilanterol 25 mcg/dose inhalation powder (Breo Ellipta) umeclidinium 62.5 mcg/actuation 1 inh INHALATION DAILY #30 ea 08/01/21 08/08/21 Rx blister powder for inhalation (Incruse Ellipta) Patient History Medical History (Updated 08/09/21 @ 20:19 by Lou Rincon MD) Anxiety in clinical settings, reports at times tx with benzo inpatient in past Bladder cancer DX 2006 Chronic obstructive pulmonary disease exacerbation admission for respiratory failure 06/07-06/09/21, reports onset of cough yesterday without change in shortness of breath or wheezing Diabetes mellitus, type 2 History of COVID-19 04/17/21>SOB/CONGESTION/FATIGUE, supplemental oxygen use at night Hyperlipidemia Hypertension controlled, stable per pt Hypothyroidism Left renal mass Obstructive sleep apnea On home oxygen therapy 2L HS with CPAP, with activity several wks after COVID illness 04/17/21; pt states has since discontinued Renal carcinoma Sleep apnea CPAP Tobacco use disorder Pt requests nicotine patch during admission, aware to discuss with surgeon's office/hospitalist team Surgical History Fusion of spine LUMBAR FUSION History of anesthesia reaction COMBATIVE WITH BACK SURGERY History of bladder surgery TURBT X 2 History of cystoscopy History of hernia repair X 3 History of tooth extraction Family History Mother History of blood clots from blood clot that went to the brain Asthma Father Esophageal cancer Anxiety Grandfather (Paternal) No problems noted. Grandmother (Paternal) Hypertension Stroke Uncle Lung cancer paternal Other No family history of adverse response to anesthesia Denies family history of Ovarian cancer Prostate cancer Heart disease Myocardial infarction Breast cancer Colorectal cancer Social History Smoking Status: Current every day smoker Tobacco Type: Cigarettes Age Started Using Tobacco: 14; packs per day: 1; Cigarettes Per Day: 10; Second Hand Exposure: Yes; Do You Dip or Chew Tobacco: No; Tobacco Cessation Education Requested by Patient: No Hx Alcohol Use: No Hx Substance Use: No Preferred Language: Malaysian Communication Ability: Effective Hearing Ability: Normal Research Worker Encyclopedia Required: No Beliefs That Will Affect Care: None marital status: Current Living Situation: Spouse current occupational status: employed current occupation: industrial sales representative How many Children do You have: 1 Other Information That Helps Us Care for You: No Feels Safe at Home: Yes Safety Concerns: Feels Safe At This Time Childhood Exposure to Second-Hand Smoke: Yes Seatbelt Use: always Sunscreen Use: Yes Assistive Devices: CPAP, Glasses and Oxygen - at Night Review of Systems Review of Systems: All systems reviewed & are unremarkable except as noted in HPI & below Physical Exam Constitutional: WD/WN, vitals as above Eyes: PERRL, conjunctivae normal, anicteric sclerae ENMT: external ear and nose normal, oropharynx normal Neck: trachea midline, no thyromegaly Respiratory: normal respiratory effort, lungs clear to auscultation Cardiovascular: RRR, no murmur, no edema Chest (Breasts): Chest: normal inspection of chest Gastrointestinal (Abdomen): Inspection/Auscultation: normal bowel sounds; + abdomen abnormal to inspection (Multiple incisions with Dermabond on abdomen) Percussion/Palpation: + abdomen tender (Mild around incision sites) and abdomen soft; no guarding Musculoskeletal: Extremities: extremities normal to inspection; no cyanosis and no clubbing Skin: no rashes, warm and dry Neurologic: moves all extremities and awake; no focal motor deficits Psychiatric: A+Ox3, euthymic affect Lymphatic: no lymphedema Results & Data Results & Data ([facility]) Vital Signs (Past 12 Hours) Vital Signs Temp Pulse Resp BP BP Pulse Ox 08/09/21 07:21 36.5 C 85 16 136/89 93 08/09/21 06:01 36.4 C L 88 16 137/81 94 08/09/21 01:58 36.8 C 99 H 18 132/79 93 08/08/21 22:03 36.6 C 94 H 18 130/88 94 Laboratory Results 08/09/21 08/09/21 08/09/21 Range/Units 17:05 12:06 07:45 WBC (4.8-10.8) K/uL RBC (4.7-6.1) M/uL Hgb (14.0-18.0) g/dL Hct (42-52) % MCV (80-100) fL MCH (25-34) pg MCHC (32-36) g/dL RDW Std Deviation (36.4-46.3) fL RDW Coeff of Gloria (11.5-14.5) % Plt Count (130-400) K/uL MPV (7.4-10.4) fL Immature Gran % (Auto) % Neut % (Auto) % Lymph % (Auto) % [place] % (Auto) % Eos % (Auto) % Baso % (Auto) % Neut # (Auto) (1.4-6.5) K/uL Lymph # (Auto) (1.2-3.4) K/uL [place] # (Auto) (0.11-0.59) K/uL Eos # (Auto) (0-0.5) K/uL Baso # (Auto) (0-0.2) K/uL Immature Gran # (Auto) (0.00-0.02) K/uL Sodium (136-145) mmol/L Potassium (3.5-5.1) mmol/L Chloride (98-107) mmol/L Carbon Dioxide (21-32) mmol/L Anion Gap (3-11) BUN (6-23) mg/dl Creatinine (0.6-1.4) mg/dl Est Cr Clr Drug Dosing ml/min Est GFR ( Amer) ml/min Est GFR (Non-Af Amer) ml/min BUN/Creatinine Ratio (10-20) Glucose (70-99(Fasting)) mg/dl POC Glucose 95 131 H 139 H (70-99) mg/dl Estimat Average Glucose mg/dl Hemoglobin A1c (4.5-5.6) % Calcium (8.5-10.1) mg/dl TSH (0.300-4.500) uIu/ml 08/09/21 08/09/21 08/09/21 Range/Units 07:16 07:16 07:16 WBC (4.8-10.8) K/uL RBC (4.7-6.1) M/uL Hgb (14.0-18.0) g/dL Hct (42-52) % MCV (80-100) fL MCH (25-34) pg MCHC (32-36) g/dL RDW Std Deviation (36.4-46.3) fL RDW Coeff of Gloria (11.5-14.5) % Plt Count (130-400) K/uL MPV (7.4-10.4) fL Immature Gran % (Auto) % Neut % (Auto) % Lymph % (Auto) % [place] % (Auto) % Eos % (Auto) % Baso % (Auto) % Neut # (Auto) (1.4-6.5) K/uL Lymph # (Auto) (1.2-3.4) K/uL [place] # (Auto) (0.11-0.59) K/uL Eos # (Auto) (0-0.5) K/uL Baso # (Auto) (0-0.2) K/uL Immature Gran # (Auto) (0.00-0.02) K/uL Sodium 135 L (136-145) mmol/L Potassium 3.9 (3.5-5.1) mmol/L Chloride 100 (98-107) mmol/L Carbon Dioxide 27 (21-32) mmol/L Anion Gap 8 (3-11) BUN 27 H (6-23) mg/dl Creatinine 2.08 H (0.6-1.4) mg/dl Est Cr Clr Drug Dosing 51.0 ml/min Est GFR ( Amer) 40.3 ml/min Est GFR (Non-Af Amer) 34.8 ml/min BUN/Creatinine Ratio 13.0 (10-20) Glucose 143 H (70-99(Fasting)) mg/dl POC Glucose (70-99) mg/dl Estimat Average Glucose 214 mg/dl Hemoglobin A1c 9.1 H (4.5-5.6) % Calcium 8.6 (8.5-10.1) mg/dl TSH 3.094 (0.300-4.500) uIu/ml 08/09/21 08/09/21 08/09/21 Range/Units 07:16 04:06 00:01 WBC 10.87 H (4.8-10.8) K/uL RBC 4.93 (4.7-6.1) M/uL Hgb 14.4 (14.0-18.0) g/dL Hct 44.2 (42-52) % MCV 89.7 (80-100) fL MCH 29.2 (25-34) pg MCHC 32.6 (32-36) g/dL RDW Std Deviation 47.7 H (36.4-46.3) fL RDW Coeff of Lgoria 14.6 H (11.5-14.5) % Plt Count 238 (130-400) K/uL MPV 10.4 (7.4-10.4) fL Immature Gran % (Auto) 0.3 % Neut % (Auto) 75.9 % Lymph % (Auto) 10.8 % [place] % (Auto) 12.5 % Eos % (Auto) 0.5 % Baso % (Auto) 0.0 % Neut # (Auto) 8.26 H (1.4-6.5) K/uL Lymph # (Auto) 1.17 L (1.2-3.4) K/uL [place] # (Auto) 1.36 H (0.11-0.59) K/uL Eos # (Auto) 0.05 (0-0.5) K/uL Baso # (Auto) 0.00 (0-0.2) K/uL Immature Gran # (Auto) 0.03 H (0.00-0.02) K/uL Sodium (136-145) mmol/L Potassium (3.5-5.1) mmol/L Chloride (98-107) mmol/L Carbon Dioxide (21-32) mmol/L Anion Gap (3-11) BUN (6-23) mg/dl Creatinine (0.6-1.4) mg/dl Est Cr Clr Drug Dosing ml/min Est GFR ( Amer) ml/min Est GFR (Non-Af Amer) ml/min BUN/Creatinine Ratio (10-20) Glucose (70-99(Fasting)) mg/dl POC Glucose 131 H 172 H (70-99) mg/dl Estimat Average Glucose mg/dl Hemoglobin A1c (4.5-5.6) % Calcium (8.5-10.1) mg/dl TSH (0.300-4.500) uIu/ml PG Care Time/CCT Total # of Minutes Spent Total Time Spent with Patient: Total time spent is greater than 50% in coordination of care (as documented) at patient's floor/unit and/or counseling patient: Coding Level of Care Code 40557 Inpt Consult Level 3 Diagnoses Obstructive sleep apnea G47.33 COPD (chronic obstructive pulmonary disease) J44.9 Benign essential hypertension I10 Diabetes mellitus E11.9 HLD (hyperlipidemia) E78.5 Hypothyroidism E03.9 Hypoxemia R09.02 Renal cell carcinoma of left kidney C64.2 FANTASMA (acute kidney injury) N17.9 Tobacco use disorder F17.200
[2021-08-09] MEDS ORDERED: LORazepam 0.5 MG TAB PO PRN (13:03)
--- NOTE | 2021-08-09 14:44 | Pharmacy Report ---
Pharmacy Glycemic Short Note 2 - Date of Service August 09, 2021 - Glycemic Short BSG Results (Last 24 hours): 08/08/21 08/09/21 08/09/21 20:09 00:01 04:06 Glucose POC Glucose 153 H 172 H 131 H 08/09/21 08/09/21 08/09/21 07:16 07:45 12:06 Glucose 143 H POC Glucose 139 H 131 H OUTPATIENT ANTIDIABETIC REGIMEN: * Metformin 500 mg PO BID * Jardiance 25 mg PO daily ASSESSMENT: * 56 y/o M admitted for Nephrectomy. Patient with history of Type 2 diabetes managed on Metformin and Jardiance at home. * Currently S. creatinine is 2.08 mg/dl. Holding oral anti-diabetic meds while admitted. * Will use basal and bolus insulin for glycemic control. * Patient received basal insulin 15 units x1 last night. Continued basal insulin on a scale based on BSG for tonight. * Fasting BSG today was 143 mg/dl. Novolog started last night based on wt and stress of 2. Continued this today. PLAN FOR INPATIENT GLYCEMIC CONTROL: * Hold outpatient oral diabetes medications * Basal insulin * Lantus 10-15 units SQ dose scale based on BSG at HS * Bolus insulin * NovoLog per scale ACHS or Q6hrs while NPO * Goal Range: Low 110 mg/dL - High 140 mg/dL * Correction Factor: 20 mg/dL/unit * Nutritional / Prandial insulin per carb ratio of 1 unit per 7 grams CHO consumed
[2021-08-09] MEDS ORDERED: INSULIN GLARGINE SOLOSTAR 100 UNITS/ML 3 ML PEN SC SCH (21:00)
[2021-08-10] MEDS: oxyCODONE HCL IR 5 MG TAB (IMMEDIATE RELEASE) PO PRN ×2 (04:00→08:09)
[2021-08-10] MEDS: LEVOTHYROXINE SODIUM 200 MCG TABLET PO SCH (06:00)
[2021-08-10] MEDS: LACTATED RINGER'S 1,000 ML IV SCH (06:02)
[2021-08-10 07:45] LABS: Basophils # (auto) 0.01 K/uL (0-0.2); Basophils % (auto) 0.1 %; Eosinophils # (auto) 0.13 K/uL (0-0.5); Eosinophils % (auto) 1.6 %; Hematocrit (blood only) 43.9 % (42-52); Hemoglobin 14.4 g/dL (14.0-18.0); Immature Granulocytes # (auto) 0.02 K/uL (0.00-0.02); Immature Granulocytes % (auto) 0.2 %; Lymphocytes # (auto) 1.04 K/uL (1.2-3.4); Lymphocytes % (auto) 12.5 %; Mean Corpuscular Hemoglobin 29.8 pg (25-34); Mean Corpuscular Hgb Conc 32.8 g/dL (32-36); Mean Corpuscular Volume 90.9 fL (80-100); Monocytes # (auto) 0.89 K/uL (0.11-0.59); Monocytes % (auto) 10.7 %; Neutrophils # (auto) 6.25 K/uL (1.4-6.5); Neutrophils % (auto) 74.9 %; Platelet Count 199 K/uL (130-400); RDW Coefficient of Variation 14.3 % (11.5-14.5); RDW Standard Deviation 47.9 fL (36.4-46.3); Red Blood Count 4.83 M/uL (4.7-6.1); White Blood Count 8.34 K/uL (4.8-10.8)
[2021-08-10] MEDS: NICOTINE 14 MG/24 HR PATCH TD SCH (08:10)
[2021-08-10] MEDS: FENOFIBRATE NANOCRYSTALLIZED 145 MG TABLET PO SCH (08:10)
[2021-08-10] MEDS: ROSUVASTATIN CALCIUM 20 MG TAB PO SCH (08:10)
[2021-08-10] MEDS: THEOPHYLLINE 400 MG EXTENDED REL TAB PO SCH (08:11)
[2021-08-10] MEDS: CHOLECALCIFEROL 1,000 UNITS 25 MCG TAB PO SCH (08:11)
[2021-08-10] MEDS: DOCUSATE SODIUM 100 MG CAP PO SCH (08:11)
[2021-08-10] MEDS: amLODIPine BESYLATE 5 MG TAB PO SCH (08:11)
[2021-08-10] MEDS: FLUTICASONE/VILANTEROL 100/25MCG 14 PUFFS/INHALER INH SCH (08:12)
[2021-08-10] MEDS: UMECLIDINIUM BROMIDE 62.5MCG/BLISTER 7 PUFFS/INHALER INH SCH (08:12)
[2021-08-10] MEDS: FLUTICASONE PROPIONATE NA SPR 16 GM BTL SCH (08:12)
[2021-08-10] MEDS: HEPARIN SOD 5,000 UNIT/0.5 ML VIAL SQ SCH (08:13)
[2021-08-10 08:20] LABS: BUN Creatinine Ratio 15.4 (10-20); Calcium 8.9 mg/dl (8.5-10.1); Creatinine Clr Calc Pharmacy 60.6 ml/min; Est GFR (African American) 49.7 ml/min; Est GFR (Non-African American) 42.9 ml/min; Potassium 3.6 mmol/L (3.5-5.1)
[2021-08-10] MEDS: INSULIN ASPART PER UNIT SC SCH ×2 (09:06→13:48)
--- NOTE | 2021-08-10 10:35 | Urology Progress Note ---
Date of Service August 10, 2021 Assessment & Plan (1) Renal mass of unknown nature: Plan: Recovering well, s/p left robot-assisted radical nephrectomy. He is eating, ambulating and his pain is controlled. Overall he is ready for discharge home today. (2) FANTASMA (acute kidney injury): Plan: Creatinine was elevated yesterday but is decreasing today on maintenance fluids and allowing p.o. intake. We will continue to monitor this as an outpatient. I also previously discussed with him that we will have him establish care with nephrology. (3) Oral mucosal lesion: Plan: Unclear etiology oral lesion. I do not think this represents thrush as it is very focal. May represent irritation from endotracheal tube, which I will discuss with anesthesia. Low suspicion for desquamating process. (4) Morbid obesity with BMI of 40.0-44.9, adult: Plan: Will tentatively plan for discharge today. Will discuss oral lesions with anesthesia and monitor. Will plan to review home BP meds with internal medicine team in anticipation of DC and have him follow up soon with his PCP. Admission and Anticipated Discharge Date Admission Date: August 08, 2021 Subjective Feeling well Pain is under control on oral medications Tolerating a diet with no nausea or vomiting Has been up and ambulating Notes some patches on the left underside of the tongue which are sore. Initially had tenderness on the right, but no lesions there today. Has been voiding well since catheter removal No bowel movements yet, but passing some flatus Review of Systems Review of Systems: 14 point review of systems negative except for otherwise indicated. Physical Exam Physical Exam: Well-appearing, NAD Respiratory: Breathing on room air Cardiovascular: Regular rate and rhythm Gastrointestinal (Abdomen): Abdomen is soft, nontender, nondistended. Incisions are well approximated with Dermabond, mild periincisional erythema, no discharge or drainage. Results & Data ([facility]) Vital Signs (Past 12 Hours) Vital Signs Temp Pulse Resp BP Pulse Ox 08/10/21 07:31 36.8 C 85 16 131/76 91 PG Care Time/CCT Total # of Minutes Spent Total Time Spent with Patient: Total time spent is greater than 50% in coordination of care (as documented) at patient's floor/unit and/or counseling patient: Coding Level of Care Code None Diagnoses FANTASMA (acute kidney injury) N17.9 Renal mass of unknown nature N28.89 Morbid obesity with BMI of 40.0-44.9, adult E66.01; Z68.41 Oral mucosal lesion K13.70
--- NOTE | 2021-08-10 12:31 | Pharmacy Report ---
Pharmacy Glycemic Short Note 2 - Date of Service August 10, 2021 - Glycemic Short BSG Results (Last 24 hours): 08/09/21 08/09/21 08/10/21 17:05 20:23 07:22 Glucose 101 H POC Glucose 95 137 H 08/10/21 08/10/21 08:00 12:05 Glucose POC Glucose 107 H 153 H OUTPATIENT ANTIDIABETIC REGIMEN: * Metformin 500 mg PO BID * Jardiance 25 mg PO daily ASSESSMENT: 08/10/21: * Patient should have received total of 23 units of insulin yesterday; 13 units of bolus insulin and most likely 10 units of basal (current MAR documentation is questionable). * BSGs yesterday were [id number] mg/dl. Fasting BSG today was 107 mg/dl. * Basal insulin dose scale at HS continued the same as yesterday. * Novolog parameters also continued the same. Background 08/09/21: * 56 y/o M admitted for Nephrectomy. Patient with history of Type 2 diabetes managed on Metformin and Jardiance at home. * Currently S. creatinine is 2.08 mg/dl. Holding oral anti-diabetic meds while admitted. * Will use basal and bolus insulin for glycemic control. * Patient received basal insulin 15 units x1 last night. Continued basal insulin on a scale based on BSG for tonight. * Fasting BSG today was 143 mg/dl. Novolog started last night based on wt and stress of 2. Continued this today. PLAN FOR INPATIENT GLYCEMIC CONTROL: * Hold outpatient oral diabetes medications * Basal insulin * Lantus 10-15 units SQ dose scale based on BSG at HS * Bolus insulin * NovoLog per scale ACHS or Q6hrs while NPO * Goal Range: Low 110 mg/dL - High 140 mg/dL * Correction Factor: 20 mg/dL/unit * Nutritional / Prandial insulin per carb ratio of 1 unit per 7 grams CHO consumed
--- NOTE | 2021-08-10 12:32 | Discharge Summary ---
Date of Service August 10, 2021 Admission HPI Per Admitting Provider This is a 56-year-old male who was previously seen in the urology office on 05/28/2021 for a newly discovered left-sided renal mass. Images were obtained for review which confirmed a 3 cm anterior upper pole heterogeneously enhancing left renal mass, concerning for malignancy. At that visit we had discussed surgical removal with robot-assisted laparoscopic left partial nephrectomy. We discussed the risks and benefits of the procedures and he elected to proceed with surgery. He presented to the OR on 08/08/2021 for this procedure. Due to complex anatomy, partial nephrectomy could not be completed and a radical nephrectomy was performed. He was admitted to the hospital postoperatively in good condition. Admission Exam Per Admitting Provider Constitutional: well developed and well nourished; no acute distress Eyes: + anicteric sclerae; pupils not irregula r Respiratory: normal respiratory effort; no respiratory distress, does not use accessory muscles and no cough Cardiovascular: well perfused Gastrointestinal (Abdomen): Inspection/Auscultation: abdomen normal to inspection; abdomen not distended Musculoskeletal: Extremities: extremities normal to inspection Skin: normal turgor; no rashes and no lesions Neurologic: moves all extremities and awake Psychiatric: Orientation: alert and oriented x 3 Principal Diagnosis Left renal mass of unknown malignant potential Discharge Exam Constitutional well developed and well nourished; no acute distress Eyes + anicteric sclerae; pupils not irregular Respiratory normal respiratory effort; no respiratory distress, does not use accessory muscles and no cough Gastrointestinal (Abdomen) Soft, appropriate periincisional tenderness. Incisions are well approximated with Dermabond, no discharge or drainage. Mild periincisional erythema. Musculoskeletal Extremities: extremities normal to inspection Skin normal turgor; no rashes and no lesions Neurologic moves all extremities and awake Psychiatric Orientation: alert and oriented x 3 Discharge Data Allergies Allergy/AdvReac Type Severity Reaction Status Date / Time lisinopril AdvReac Mild Cough Verified 08/08/21 06:12 Consultations 08/08/21 18:13 Consult Hospitalist Routine Procedures Performed Operation Date: 08/08/21 07:30 Actual Procedures p Robotic Assisted Laparoscopic Left Radical Nephrectomy (Left) - Flex Carrasco MD Diabetes Follow up Diabetes Follow-up Needed for HgbA1c >9% Hospital Course (1) Renal mass of unknown nature: Patient underwent robot-assisted left radical nephrectomy on 08/08/2021. Postoperatively he recovered well. By postop day 2 he was tolerating a diet, ambulating and his pain was well controlled. He was discharged home in good condition. Pathology was still pending upon discharge. (2) FANTASMA (acute kidney injury): His baseline creatinine was approximately 1.0. On postop day 1 his creatinine had increased to 2.08, but then subsequently decreased to 1.75 on postop day 2. This was thought to be largely due to his nephrectomy. With adequate hydration, I suspect this will continue to improve. We will have him establish care with nephrology for maximal renal protection. Also discussed this with the internal medicine team and made adjustments to his home medications upon discharge. We will plan to have him follow-up with his primary care physician for ongoing medication management. (3) Oral mucosal lesion: Mucosal lesions appeared on postop day 2. These were largely on the left underside of his tongue. I discussed these with anesthesia and they were thought most likely to represent stress ulcers. We will continue to monitor and he was instructed to contact us if he notices any lesions in other areas. (4) Morbid obesity with BMI of 40.0-44.9, adult: (5) COPD (chronic obstructive pulmonary disease): He was maintained on his home COPD regimen while in the hospital. By postop day 2, he was back to his normal respiratory status. (6) Diabetes mellitus: Blood glucose was managed with insulin while he was inpatient in the hospital. We will have him follow-up with his primary care physician as an outpatient for further glucose management. Total Time Total Time Spent Total Time Spent (In Minutes): 15 Total Time Includes: Examination of the Patient, Medication Reconciliation and Communication With Other Providers Discharge Plan Discharge Items Patient Disposition: Home - Self-Care Reason For Visit: POSTOP Discharge Diagnosis: Left renal mass Activity: Per Instructions section Non-emergency contact: Urologist Call non-emergency contact if: your pain is not controlled, your temperature is above 101, your wound has increased redness and your wound pain has increased Follow-up/Referrals: Arik Raya MD [Primary Care Provider] - Diet: Regular Addtl Attending Provider Instructions: The surgery you had was: Robot-assisted left radical nephrectomy Please take all medications as prescribed and keep all follow-ups as scheduled. Please call our office at [phone] with any questions, concerns or need to reschedule appointments for any reason. We are happy to assist you. Medications: Take Tylenol every 6 hours for baseline pain control If you are prescribed narcotics such as oxycodone, please take it according to the instructions on the label. Until you see your primary care doctor, please don't take your metformin, jardiance or losartan/HCTZ. You should review these medications with your PCP. Activity/Recovering at home: We recommend having someone with you for the first few days after surgery to help care for you. It is okay to shower tomorrow. Please avoid swimming, bathing or using hot tub until incisions are well healed. Avoid driving until you are not requiring pain medication any further. Walk at least a few times a day. Increase your distance, as you feel able. Stairs in your home are okay. Please avoid strenuous or sexual activity until your follow-up. No lifting anything more than 10 pounds for 6 to 8 weeks Use a stool softener (i.e. Colace or Miralax) to prevent constipation, especially the first two weeks post operatively. You should not be straining/pushing to have a bowel movement. Follow-up: We will have you come to the urology office in ~6 weeks for a wound check. Please call your PCPs office to schedule an appointment within the next 1-2 weeks to review your surgery and discuss whether to change any medications. Please have lab work done at any [facility] lab within the upcoming week. You should just be able to walk in and the orders will be there. Call [facility] at [phone] if you experience: Chest pain or trouble breathing (call 385 or go to the hospital). Fever of 101F or higher Symptoms of infection at incision site, including redness or swelling, warmth, or bad-smelling drainage Pain that is not controlled with medicines Pending Studies at Discharge: No Stand-Alone Forms: [employer], Smoking Cessation Medications and DC Order Prescriptions: New oxycodone 5 mg tablet 5 mg PO Q6H PRN (Reason: pain) Qty: 10 RF: 0 Continued albuterol sulfate 2.5 mg /3 mL (0.083 %) solution for nebulization 2.5 mg inhalation Q4H PRN (Reason: shortness of breath or wheezing) Qty: 90 RF: 5 albuterol sulfate 90 mcg/actuation HFA aerosol inhaler 2 puff inhalation Q6H PRN (Reason: bronchospasm) Qty: 25.5 RF: 3 amlodipine 10 mg tablet See Rx Instructions .ROUTE .COMPLEX Qty: 90 RF: 1 Breo Ellipta 100-25 mcg/dose blister with device 1 inh inhalation DAILY Qty: 60 RF: 3 Incruse Ellipta 62.5 mcg/actuation blister with device 1 inh inhalation DAILY Qty: 30 RF: 3 cholecalciferol (vitamin D3) 50 mcg (2,000 unit) tablet 50 mcg PO DAILY Qty: 30 RF: 1 sodium chloride [Saline Nasal] 0.65 % aerosol,spray 1 spray intranasal BID PRN (Reason: Congestion) RF: 0 Oxygen Home Liters Per Minute See Rx Instructions .ROUTE .COMPLEX Qty: 1 RF: 0 CPAP Machine Misc 1 ea .Route UD Qty: 1 RF: 0 fluticasone propionate 50 mcg/actuation spray,suspension 2 spray intranasal DAILY Qty: 16 RF: 5 theophylline 400 mg tablet extended release 24 hr 400 mg PO DAILY RF: 0 levothyroxine 200 mcg tablet 200 mcg PO QAM RF: 0 rosuvastatin [Crestor] 40 mg tablet 40 mg PO QAM RF: 0 fenofibrate 160 mg tablet 160 mg PO QAM RF: 0 Changed metformin 500 mg tablet extended release 24 hr See Rx Instructions .ROUTE .COMPLEX Qty: 180 RF: 1 Jardiance 25 mg tablet 25 mg PO QAM Qty: 0 RF: 0 losartan-hydrochlorothiazide 100-25 mg tablet 1 tab PO QAM Qty: 0 RF: 0 Discharge Orders: Discharge Order (Routine); Ordered 08/10/21 Ordered By: Flex Carrasco Admission Data Admit Date/Time: 08/08/21 14:46 Attending Provider: Flex Carrasco Admit Provider: Flex Carrasco Primary Care Provider: Arik Raya Other Providers: Evelyn Horta ; Jayro De Leon ; Carlos Carpenter ; Karl Hinton ; Pankaj Rees ; Keith Sewell ; Lou Rincon ; Clemente Antoine ; Rupa Gomes ; Rene Zaman ; Song Andre ; Nneka Washington ; Homa Hannah ; David De La O ; Evelyn Almonte ; Edison Winn ; Donna Garcia ; Warren Sorenson ; Jayro Dang ; Reema Syed ; Deonna Aponte ; Raleigh Hendrickson ; Candace Mendoza ; Felix Hernandez ; Brett Mcdonnell ; Estuardo Lennon ; Juanito Orta ; Johny García Coding Level of Care Code D/C DAY MANAGEMENT <30 MINS Diagnoses Oral mucosal lesion K13.70 Morbid obesity with BMI of 40.0-44.9, adult E66.01; Z68.41 FANTASMA (acute kidney injury) N17.9 Renal mass of unknown nature N28.89 COPD (chronic obstructive pulmonary disease) J44.9 Diabetes mellitus E11.9 Time Spent (min) 15
[2021-08-10] MEDS ORDERED: FIRST - Mouthwash BLM 119 ML PO PRN (12:37)
--- NOTE | 2021-08-10 12:42 | Hospitalist Progress Note ---
Date of Service August 10, 2021 Assessment & Plan (1) Renal cell carcinoma of left kidney: Plan: Patient is status post left nephrectomy Postop medical management as per urology Manriquez catheter removed on 07/22 and he is voiding -Pain control, bowel regimen Encouraged ambulation Incentive spirometry Await [id number] with urology after discharge Urology is discharging him today (2) Hypoxemia: Plan: At home uses 2 L bled through CPAP machine at night and 2 L during the day as needed He was weaned down to 2 L continuously and his pulse ox remained in the low 90s Advised him to continue 2 L nasal cannula at all times-he already has oxygen at home Follow-up with PCP and/or pulmonology to wean off O2 as an outpatient (3) FANTASMA (acute kidney injury): Plan: Creatinine up to 2.0 from baseline 1.0 on postop day 1 Likely secondary to nephrectomy and was also taking HCTZ/losartan He received IV fluids and his losartan/HCTZ was held Creatinine was down to 1.75 on the day of discharge and he was doing well, making urine, other electrolytes normal -Recommended continuing to hold losartan/HCTZ, Jardiance, and metformin upon d ischarge -Check BMP on Friday -Follow-up with PCP to see if okay to restart the held medications at that time (4) COPD (chronic obstructive pulmonary disease): Plan: Follows with pulmonology Continue home maintenance inhalers of Breo and Anoro Continue home theophylline Encouraged smoking cessation (5) Obstructive sleep apnea: Plan: Continue CPAP with 2 L bled in at night (6) Benign essential hypertension: Plan: Blood pressures are controlled Will hold home HCTZ/losartan due to acute kidney injury Continue amlodipine Advised him to follow blood pressures at home and if become consistently elevated greater than 160/100, contact PCP Will likely be able to restart losartan/HCTZ next week after creatinine returns to baseline (7) Diabetes mellitus: Plan: Hemoglobin A1c is 9.1% which is uncontrolled Holding home Jardiance and metformin secondary to acute kidney injury Received insulin while inpatient Advised starting low-dose of glipizide 2.5 mg once daily upon discharge temporarily Follow blood sugars at home and contact PCP if persistently greater than 200 Hopefully he can restart his Jardiance and metformin once his renal function improves (8) HLD (hyperlipidemia): Plan: Continue fenofibrate (9) Hypothyroidism: Plan: TSH here is normal Continue home levothyroxine (10) Tobacco use disorder: Plan: Encouraged smoking cessation-he is trying to quit Continue nicotine patch Plan: DVT prophylaxis-Heparin SQ, SCDs Disposition-medically stable for discharge Admission and Anticipated Discharge Date Admission Date: August 08, 2021 Subjective Patient reports feeling better today, he slept well last night. Has some abdominal pain but is improved. He is passing flatus but no stool. He is ambulating without difficulty. He is tolerating a diet. He is able to void. I discussed his care with urologist. Review of Systems Review of Systems: All systems reviewed & are unremarkable except as noted in HPI & below Physical Exam Constitutional: WD/WN, vitals as above Eyes: + anicteric sclerae ENMT: external ear and nose normal, oropharynx normal Neck: trachea midline, no thyromegaly Respiratory: normal respiratory effort, lungs clear to auscultation Cardiovascular: RRR, no murmur, no edema Chest (Breasts): Chest: normal inspection of chest Gastrointestinal (Abdomen): Inspection/Auscultation: normal bowel sounds; + abdomen abnormal to inspection (Multiple incisions with Dermabond on abdomen) Percussion/Palpation: + abdomen tender (Mild around incision sites) and abdomen soft; no guarding Musculoskeletal: Extremities: extremities normal to inspection; no cyanosis and no clubbing Skin: no rashes, warm and dry Neurologic: moves all extremities and awake; no focal motor deficits Psychiatric: A+Ox3, euthymic affect Lymphatic: no lymphedema Results & Data Results & Data ([facility]) Vital Signs (Past 12 Hours) Vital Signs Temp Pulse Resp BP Pulse Ox 08/10/21 07:31 36.8 C 85 16 131/76 91 Laboratory Results 08/10/21 08/10/21 08/10/21 Range/Units 12:05 08:00 07:22 WBC (4.8-10.8) K/uL RBC (4.7-6.1) M/uL Hgb (14.0-18.0) g/dL Hct (42-52) % MCV (80-100) fL MCH (25-34) pg MCHC (32-36) g/dL RDW Std Deviation (36.4-46.3) fL RDW Coeff of Gloria (11.5-14.5) % Plt Count (130-400) K/uL MPV (7.4-10.4) fL Immature Gran % (Auto) % Neut % (Auto) % Lymph % (Auto) % [place] % (Auto) % Eos % (Auto) % Baso % (Auto) % Neut # (Auto) (1.4-6.5) K/uL Lymph # (Auto) (1.2-3.4) K/uL [place] # (Auto) (0.11-0.59) K/uL Eos # (Auto) (0-0.5) K/uL Baso # (Auto) (0-0.2) K/uL Immature Gran # (Auto) (0.00-0.02) K/uL Sodium 135 L (136-145) mmol/L Potassium 3.6 (3.5-5.1) mmol/L Chloride 99 (98-107) mmol/L Carbon Dioxide 30 (21-32) mmol/L Anion Gap 6 (3-11) BUN 27 H (6-23) mg/dl Creatinine 1.75 H D (0.6-1.4) mg/dl Est Cr Clr Drug Dosing 60.6 ml/min Est GFR ( Amer) 49.7 ml/min Est GFR (Non-Af Amer) 42.9 ml/min BUN/Creatinine Ratio 15.4 (10-20) Glucose 101 H (70-99(Fasting)) mg/dl POC Glucose 153 H 107 H (70-99) mg/dl Calcium 8.9 (8.5-10.1) mg/dl 08/10/21 Range/Units 07:22 WBC 8.34 (4.8-10.8) K/uL RBC 4.83 (4.7-6.1) M/uL Hgb 14.4 (14.0-18.0) g/dL Hct 43.9 (42-52) % MCV 90.9 (80-100) fL MCH 29.8 (25-34) pg MCHC 32.8 (32-36) g/dL RDW Std Deviation 47.9 H (36.4-46.3) fL RDW Coeff of Gloria 14.3 (11.5-14.5) % Plt Count 199 (130-400) K/uL MPV 10.0 (7.4-10.4) fL Immature Gran % (Auto) 0.2 % Neut % (Auto) 74.9 % Lymph % (Auto) 12.5 % [place] % (Auto) 10.7 % Eos % (Auto) 1.6 % Baso % (Auto) 0.1 % Neut # (Auto) 6.25 (1.4-6.5) K/uL Lymph # (Auto) 1.04 L (1.2-3.4) K/uL [place] # (Auto) 0.89 H (0.11-0.59) K/uL Eos # (Auto) 0.13 (0-0.5) K/uL Baso # (Auto) 0.01 (0-0.2) K/uL Immature Gran # (Auto) 0.02 (0.00-0.02) K/uL Sodium (136-145) mmol/L Potassium (3.5-5.1) mmol/L Chloride (98-107) mmol/L Carbon Dioxide (21-32) mmol/L Anion Gap (3-11) BUN (6-23) mg/dl Creatinine (0.6-1.4) mg/dl Est Cr Clr Drug Dosing ml/min Est GFR ( Amer) ml/min Est GFR (Non-Af Amer) ml/min BUN/Creatinine Ratio (10-20) Glucose (70-99(Fasting)) mg/dl POC Glucose (70-99) mg/dl Calcium (8.5-10.1) mg/dl PG Care Time/CCT Total # of Minutes Spent Total Time Spent with Patient: Total time spent is greater than 50% in coordination of care (as documented) at patient's floor/unit and/or counseling patient: Coding Level of Care Code 27663 Subseq Hosp Care Lvl 3 Diagnoses Renal cell carcinoma of left kidney C64.2 Hypoxemia R09.02 FANTASMA (acute kidney injury) N17.9 COPD (chronic obstructive pulmonary disease) J44.9 Obstructive sleep apnea G47.33 Benign essential hypertension I10 Diabetes mellitus E11.9 HLD (hyperlipidemia) E78.5 Hypothyroidism E03.9 Tobacco use disorder F17.200
== END 2021-08-10 15:21 | disposition home or self-care (01) ==
LOC: ASU 05:50 → INTOOBSV 14:46 → PACUINP 14:46 → 3W 19:06
DX: F17.210 Nicotine dependence, cigarettes, uncomplicated; D30.12 Benign neoplasm of left renal pelvis; Z79.84 Long term (current) use of oral hypoglycemic drugs; Z79.890 Hormone replacement therapy; Z99.89 Dependence on other enabling machines and devices; E78.5 Hyperlipidemia, unspecified; E11.9 Type 2 diabetes mellitus without complications; G47.30 Sleep apnea, unspecified; C64.2 Malignant neoplasm of left kidney, except renal pelvis; E03.9 Hypothyroidism, unspecified; Z79.899 Other long term (current) drug therapy; I10 Essential (primary) hypertension